=== PATIENT | female | born 1980 ===

== ENCOUNTER 2024-07-05 06:45 | Day surgery (SDC) | payer OTHER ==
[2024-07-05] MEDS ORDERED: POVIDONE-IODINE 118 ML BOTT TOP ONE (08:15)
[2024-07-05] MEDS ORDERED: KETOROLAC TROMETHAMINE 30 MG VIAL IV STA (08:47)
== END 2024-07-05 13:10 | disposition home or self-care (01) ==
LOC: CIR.AMB 06:45
PROVIDERS: ATTEND Obstetrics & Gynecology
DX: N84.0 Polyp of corpus uteri (principal); N93.8 Other specified abnormal uterine and vaginal bleeding; D25.0 Submucous leiomyoma of uterus